=== PATIENT | female | born 1965 | race Caucasian/White ===

== ENCOUNTER 2018-07-02 09:03 | Emergency (ER) | payer BC ==
[~2018-07-02] VITALS: Ht 165.1 cm; Wt 90.7 kg
--- OUTSIDE RECORDS SUMMARY | 2018-07-02 09:05 | XMS REPORT | Clinical Summary ---
Author Author [facility] [employer] [facility] [employer] Address Unknown Phone Unavailable Care Team Providers Care Digital Solution Architect Name Role Phone Laurie Cortes MD PCP Allergies No Known Allergies Medications End Date Status Medication Sig Dispensed Refills Start Date Active propranolol (INDERAL) 40 TK 1 T PO BID 1 MG tablet 7 Active levothyroxine (SYNTHROID, TK 1 T PO D 0 LEVOXYL) 150 mcg tablet 7 Active butalbital-acetaminophen- TK 1 T PO Q 8 0 caff (FIORICET, ESGIC) H PRN 7 50-325-40 mg per tablet Active ondansetron (ZOFRAN) 4 MG Take 4 mg by 0 tablet mouth every 8 (eight) hours as needed for nausea or vomiting. Active promethazine (PHENERGAN) Take 25 mg by 0 25 MG tablet mouth every 6 (six) hours as needed for nausea or vomiting. Active cyanocobalamin 1,000 Inject 1,000 0 mcg/mL injection mcg into the shoulder, thigh, or buttocks once. Active tiZANidine (ZANAFLEX) 2 Take 2 mg by 0 MG tablet mouth every 8 (eight) hours as needed for muscle spasms. Active venlafaxine XR TK 1 C PO D 90 capsule 1 (EFFEXOR-XR) 150 MG 24 hr 7 capsule Active lisinopril TAKE 1 30 tablet 0 (PRINIVIL,ZESTRIL) 10 mg TABLET(10 MG) 8 tabletIndications: BY MOUTH Essential hypertension DAILY 08/07/2017 venlafaxine XR (EFFEXOR Take 1 90 capsule 1 XR) 75 MG 24 hr capsule (75 7 capsuleIndications: mg total) by Dysthymia mouth daily. 08/08/2017 Discontinued lisinopril TAKE 1 90 tablet 0 (PRINIVIL,ZESTRIL) 10 mg TABLET(10 MG) 8 tabletIndications: BY MOUTH Essential hypertension DAILY 11/04/2017 Discontinued lisinopril TAKE 1 90 tablet 0 (PRINIVIL,ZESTRIL) 10 mg TABLET(10 MG) 8 tabletIndications: BY MOUTH Essential hypertension DAILY Active Problems Problem Noted Date Acquired hypothyroidism 08/07/2016 Essential hypertension 08/07/2016 Vitamin D deficiency 08/07/2016 Arthritis 08/07/2016 Migraine Hypothyroid Hypertension Depression Allergic rhinitis Encounters Care Team Description Date Type Specialty Laurie Cortes MD Essential hypertension 12/10/2017 Refill Internal Medicine Laurie Cortes MD Essential hypertension 11/04/2017 Refill Internal Medicine Laurie Cortes MD Essential hypertension 08/08/2017 Refill Internal Medicine after 07/01/2017 Family History Medical History Relation Name Comments Heart disease Father Hyperlipidemia Father Atrial fibrillation Mother Relation Name Status Comments Father Mother Social History Date Tobacco Use Types Packs/Day Years Used Never Smoker Smokeless Tobacco: Never Used Alcohol Use Drinks/Week oz/Week Comments No Sex Assigned at Date Recorded Not on file Industry Job Start Date Occupation Not on file Not on file Not on file Travel End Travel History Travel Start No recent travel history available. Last Filed Vital Signs Not on file Plan of Treatment Health Maintenance Due Date Last Done Comments CERVICAL CANCER SCREENING 07/12/1987 BREAST CANCER SCREENING 2016 COLON CANCER SCREENING 2016 SHINGLES VACCINES (#1) 2016 INFLUENZA VACCINE 11/03/2017 Results Not on fileafter 07/01/2017 Insurance Payer Benefit Subscriber ID Type Phone Address Plan / Group BCBS BCBS xxxxxxxxxxxx PPO CHOICE PPO/FEDSAGRARIO L EMPL PPO Advance Directives Patient has advance care planning documents on file. For more information, teodoro sanford contact: [facility] [address] [place] [phone]
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
[2018-07-02] MEDS ORDERED: SODIUM CHLORIDE 0.9% 1000ML 1,000 ML IV STA (09:37)
[2018-07-02] MEDS ORDERED: KETOROLAC TROMETHAMINE 30 MG/ML VIAL ONE (09:55)
[2018-07-02] MEDS ORDERED: METOCLOPRAMIDE HCL 10 MG/2ML VIAL IV ONE (10:30)
[2018-07-02] MEDS ORDERED: DIPHENHYDRAMINE HCL INJ 50 MG/ML VIAL IV ONE (10:30)
[2018-07-02] MEDS ORDERED: KETOROLAC TROMETHAMINE 30 MG/ML VIAL IV ONE (10:30)
[2018-07-02] MEDS ORDERED: DIAZEPAM 5 MG TAB PO ONE (10:30)
[2018-07-02 11:01] VITALS: BP 120/73
== END 2018-07-02 11:11 | disposition home or self-care (01) ==
LOC: ER 09:03
DX: G43.011 Migraine without aura, intractable, with status migrainosus (principal); G44.219 Episodic tension-type headache, not intractable
CPT/HCPCS: 99283; J1200; J1885; J2765; J7030

== ENCOUNTER → 2018-11-08 | Outpatient (CLI) | payer BC ==
[~2018-11-08] MED LIST: BUTALBIT-ACETA1 EACH PO; LEVOTHYROXINE112 MCG PO; LISINOPRIL10 MG PO; NORCO 7.5-3251 EACH PO; PROPRANOLOL HCL40 MG PO; SUMATRIPTAN SQ; TIZANIDINE HCL4 MG PO; VENLAFAXINE HC150 M1 PO; VITAMIN B-121000 MC2 IM; VITAMIN D10000 UNIT PO
--- NOTE | 2018-11-08 14:30 | Diagnostic Imaging Report ---
EXAM: CT Chest WITHOUT intravenous contrast 11/08/2018 12:07 PM INDICATION: Abnormal chest radiograph, pulmonary nodule COMPARISON: Chest radiograph of 11/07/2018 TECHNIQUE: Chest was scanned utilizing a multidetector helical scanner from the lung apex through the level of the adrenal glands without administration of IV contrast. Coronal and sagittal reformations were obtained. Routine protocol was performed. IV CONTRAST: None RADIATION DOSE: Total DLP: 507.4 mGy*cm. Dose modulation, iterative reconstruction, and/or weight based adjustment of the mA/kV was utilized to reduce the radiation dose to as low as reasonably achievable. COMPLICATIONS: None FINDINGS: LINES/ TUBES: None. LUNGS AND AIRWAYS: The central airways are patent. No focal consolidation or pulmonary edema. The nodular opacities seen at the left lung apex on the prior radiograph of 11/07/2018 are not visualized on today's CT and likely represented overlying patient hair. No suspicious pulmonary nodules. PLEURA: No pleural effusion. No pneumothorax. HEART AND MEDIASTINUM: The right thyroid lobe is surgically absent. Left thyroid gland appears unremarkable. No supraclavicular, mediastinal, or hilar lymphadenopathy. The heart is not enlarged. No pericardial effusion. UPPER ABDOMEN: Limited noncontrast enhanced views of the upper abdomen demonstrate no focal abnormality in the partially visualized liver, spleen, pancreas, upper most kidneys, or right adrenal gland. 1.5 cm left adrenal gland myelolipoma. BONES: No acute osseous injury. No suspicious lytic or blastic lesions. SOFT TISSUES: Unremarkable. IMPRESSION: No suspicious lung nodules. The nodular opacity seen at the left lung apex on the prior radiograph likely represented overlying material external to the patient. Signed by: Karly Gibbs MD on 11/08/2018 2:26 PM
== END ==
LOC: CT 11:00
PROVIDERS: ATTEND Neurological Surgery
DX: Z03.89 Encounter for observation for other suspected diseases and conditions ruled out (principal); D17.79 Benign lipomatous neoplasm of other sites
CPT/HCPCS: 71250

== ENCOUNTER 2018-11-10 05:21 | Observation (INO) | payer BC ==
--- NOTE | 2018-11-07 16:36 | Diagnostic Imaging Report ---
EXAMINATION: CHEST 2 VIEWS INDICATION: Pre-operative COMPARISON: None FINDINGS: LINES/TUBES:None LUNGS:Lungs are well-inflated. No focal consolidation or pulmonary edema. Several nodular opacities at the left lung apex measure up to 10 mm. PLEURA:No pleural effusion or pneumothorax. MEDIASTINUM:The cardiomediastinal silhouette appears normal in size and shape. BONES/SOFT TISSUES:No acute osseous injury. ABDOMEN:No free air under the diaphragm. IMPRESSION: No focal pneumonia or pulmonary edema. Nodular opacities at the left lung apex measuring up to 10 mm likely represent pulmonary nodules. Recommend follow-up chest CT for further evaluation. Signed by: Karly Gibbs MD on 11/07/2018 4:33 PM
[2018-11-07 16:46] LABS: BASOPHILS # (AUTO) 0.1 (0.0-0.1); BASOPHILS % 0.7 % (0.0-1.0); EOSINOPHILS # (AUTO) 0.2 (0.0-0.4); EOSINOPHILS % 2.4 % (0.0-6.0); HEMATOCRIT 39.6 % (34.2-44.1); LYMPHOCYTES # (AUTO) 3.1 (1.0-3.2); LYMPHOCYTES % 36.3 % (18.0-39.1); MEAN CORPUSCULAR HEMOGLOBIN 29.1 pg (28-32); MEAN CORPUSCULAR HGB CONC 32.8 g/dL (31-35); MEAN CORPUSCULAR VOLUME 88.6 fL (81-99); MONOCYTES # (AUTO) 0.6 (0.2-0.8); MONOCYTES % 6.6 % (4.4-11.3); NEUTROPHILS # (AUTO) 4.6 (2.1-6.9); NEUTROPHILS % 53.8 % (38.7-80.0); PLATELET COUNT 314 x10e3/uL (140-360); RED BLOOD COUNT 4.47 x10e6/uL (3.6-5.1); RED CELL DISTRIBUTION WIDTH 12.7 % (11.7-14.4)
[2018-11-07 17:02] LABS: INR 0.84
[2018-11-07 17:03] LABS: PARTIAL THROMBOPLASTIN TIME 31.5 seconds (23.8-35.5)
[2018-11-07 17:09] LABS: ANION GAP 12.4 mmol/L (8-16); BLOOD UREA NITROGEN 10 mg/dL (7-26); BUN/CREATININE RATIO 12 (6-25); CALCIUM 9.5 mg/dL (8.4-10.2); CARBON DIOXIDE 24 mmol/L (22-29); CHLORIDE 107 mmol/L (98-107); CREATININE, SERUM 0.82 mg/dL (0.57-1.11); EST GLOMERULAR FILTRATION RATE > 60 ML/MIN (60-); GLUCOSE 80 mg/dL (74-118); POTASSIUM 4.4 mmol/L (3.5-5.1); SODIUM 139 mmol/L (136-145)
[~2018-11-10] VITALS: Ht 165.1 cm; Wt 90.3 kg
[~2018-11-10 05:21] MED LIST changes: -NORCO 7.5-3251 EACH PO
--- OUTSIDE RECORDS SUMMARY | 2018-11-10 05:35 | XMS REPORT | Clinical Summary ---
Author Author [employer] [facility] Address Unknown Phone Unavailable Care Team Providers Care Electrocardiograph Technician Name Role Phone Laurie Cortes MD PCP [...] MD Essential hypertension 12/10/2017 Refill Internal Medicine after 11/09/2017 Family History Medical History Relation Name Comments [...] Health Maintenance Due Date Last Done Comments BREAST CANCER SCREENING 2016 COLONOSCOPY SCREENING 2016 SHINGLES VACCINES (#1) 2016 INFLUENZA VACCINE 11/03/2018 Results Not on fileafter 11/09/2017 Insurance Type Payer Benefit Subscriber ID Effective Phone Address Plan / Dates Group PPO BCBS BCBS xxxxxxxxxxxx 2016-P CHOICE resent PPO/FRANCHESKA L EMPL PPO Advance Directives Patient has advance care planning documents on file. For more information, teodoro sanford contact: Leno Carias [address] [place] [address]
[2018-11-10] MEDS ORDERED: CEFAZOLIN SOD 1 GM/NS 50ML 50 ML IV ONE (06:17)
[2018-11-10] MEDS ORDERED: BUPIVACAINE 0.5%/EPI 30 ML SDV INJ ONE (07:00)
[2018-11-10] MEDS ORDERED: THROMBIN FOR SOLN 5,000 UNIT VIAL ONE (07:00)
[2018-11-10] MEDS ORDERED: BACITRACIN 50,000 UNIT VIAL ONE (07:00)
[2018-11-10] MEDS ORDERED: MORPHINE SULFATE INJ 4 MG/ML INJ 1ML ONE (09:03)
[2018-11-10] MEDS ORDERED: MAGNESIUM/ALUMINUM/SIMETHICONE 30 ML UDC PO PRN (09:15)
[2018-11-10] MEDS ORDERED: ACETAMINOPHEN 325 MG TAB PO PRN (09:15)
[2018-11-10] MEDS ORDERED: CEPACOL SORE THROAT LOZENGES PO PRN (09:15)
[2018-11-10] MEDS ORDERED: NON-FORMULARY MEDICATION (Cholecalciferol (Vitamin D3) (Vitamin D) 50,000 UNITS) PO SCH (09:15)
--- OUTSIDE RECORDS SUMMARY | 2018-11-10 09:22 | XMS REPORT | Clinical Summary ---
Author Author [facility] Organization [facility] Address Unknown Phone Unavailable Care Team Providers Care Clinical Editor Name Role Phone Laurie Cortes MD PCP [...] more information, teodoro sanford contact: Leno Carias [address] [place] [address]
[2018-11-10] MEDS ORDERED: KETOROLAC TROMETHAMINE 30 MG/ML VIAL ONE (09:31)
[2018-11-10 09:53] VITALS: BP 139/63
[2018-11-10 10:03] VITALS: BP 139/63
[2018-11-10] MEDS ORDERED: MORPHINE SULFATE INJ 10 MG/ML IM PRN (10:30)
--- NOTE | 2018-11-10 10:30 | NUR ---
Received patient from PACU, a/ox3, VSS and call light within reach, cervical collar in place, assisted to bed and pains well managed. Call light within reach and will monitor.
[2018-11-10] MEDS ORDERED: SUMATRIPTAN SUCCINATE 6 MG/0.5 ML VIAL SC PRN (10:45)
[2018-11-10] MEDS: LACTATED RINGER'S 1,000 ML IV SCH ×3 (10:56→22:26)
[2018-11-10] MEDS: CARISOPRODOL 350 MG TAB PO PRN ×2 (10:57→19:45)
--- NOTE | 2018-11-10 11:15 | NUR ---
Patient with c/o migraine headaches, medicated with Fiorecet and Soma, will monitor.
[2018-11-10] MEDS ORDERED: DESFLURANE 240 ML BTL INH ONE (11:17)
[2018-11-10] MEDS ORDERED: ROCURONIUM BROMIDE 10 MG/ML 5ML VIAL ONE (11:17)
[2018-11-10] MEDS ORDERED: DEXAMETHASONE SOD PHOS INJ 4 MG/ML VIAL ONE (11:17)
[2018-11-10] MEDS ORDERED: DIPHENHYDRAMINE HCL INJ 50 MG/ML VIAL ONE (11:17)
[2018-11-10] MEDS ORDERED: ACETAMINOPHEN 1000 MG/100 ML IV ONE (11:17)
[2018-11-10] MEDS ORDERED: ONDANSETRON HCL INJ 2MG/ML 2ML 2 MG/ML VIAL ONE (11:17)
[2018-11-10] MEDS ORDERED: GLYCOPYRROLATE INJ 1MG/ 5 ML SYR ONE (11:17)
[2018-11-10] MEDS ORDERED: NEOSTIGMINE 5 MG/5ML SYR ONE (11:17)
[2018-11-10] MEDS ORDERED: PROPOFOL IV EMULSION 10 MG/ML 20 ML VIAL ONE (11:17)
[2018-11-10] MEDS ORDERED: LIDOCAINE HCL 2% LOCAL INJ 5 ML SDV VIAL INJ ONE (11:17)
[2018-11-10] MEDS: ACETAMIN/BUTALBITAL/CAFFEINE TAB PO PRN ×2 (11:36→19:45)
[2018-11-10] MEDS: HYDROMORPHONE 2MG/ML 2 MG/ML ML IV PRN ×3 (11:53→21:29)
[2018-11-10] MEDS: PROMETHAZINE HCL (IM) 25 MG/ML VIAL IM PRN (11:53)
--- NOTE | 2018-11-10 11:56 | NUR ---
Patient with nausea and an episode of vomiting, medicated with Phernegen IM, Dilaudid for pain and will monitor.
[2018-11-10 12:05] VITALS: BP 113/69
--- NOTE | 2018-11-10 12:25 | Operative Report ---
DATE OF PROCEDURE: 11/10/2018 SURGEON: Kain Boo MD PREOPERATIVE DIAGNOSIS: C5-6 disk herniation with radiculopathy, M50.122. POSTOPERATIVE DIAGNOSIS: C5-6 disk herniation with radiculopathy, M50.122. PROCEDURES: 1. C5-6 anterior cervical diskectomy and microsurgical osteophyte resection and allograft fusion, 61864. 2. Preparation of MTF corticocancellous allograft, 78121. 3. C5-6 anterior cervical plating with Synthes DPM plate, 16061. ANESTHESIA: General. INDICATIONS: The patient is a woman, who presents with C5-6 disk herniation and spondylosis with intractable cervical radiculopathy and neck pain and headaches and was taken to the operating room for C5-6 anterior cervical decompression and fusion. PROCEDURE IN DETAIL: After induction of general anesthesia, the patient was placed on the operating table in supine position. The right side of the neck was prepped and draped in sterile fashion. The fluoroscopic C-arm was positioned in cross-table lateral orientation. A small transverse incision was created on the right side of neck, superimposed on the C5-6 disk space as determined by fluoroscopy. The platysma was divided in line with the incision. A subplatysmal dissection was carried out and avascular plane of dissection was developed medially in sternocleidomastoid muscles and was followed medial to the carotid sheath to the anterior border of cervical spine. The deep cervical fascia was opened. The esophagus was retracted to the left. The attachments of longus colli muscles to the anterolateral aspects of vertebral bodies of C5 and C6 were divided. The anterior longitudinal ligament was resected. [place]ner posts were inserted into C5 and C6 and the [place]ner distractor was used to distract the disk space. The anterior annulus of the disk was incised with a #11 blade. The contents of the C5-6 disk were thoroughly evacuated with angled curettes and pituitary rongeurs. The posterior osteophytes were drilled with a 2 mm cutting bur until they were completely removed. The posterior annulus of the disk, herniated disk material, and the posterior ventral ligament were resected layer by layer until the dura was fully exposed and decompressed. The medial aspects of the uncinate processes were resected bilaterally to further expose any compressed origins of the corresponding nerve roots. After satisfactory decompression had been achieved, the endplates were prepared for fusion. The disk space was sized and found to be 8 mm in height. A piece of MTF corticocancellous allograft measuring 8 mm in thickness was selected and prepared in saline and loaded onto a Synthes ZPN plate. The construct was then inserted into the C5-6 disk space under distraction and fluoroscopic guidance. The distraction was released and distraction posts were removed. The plate was then screwed to the endplates of C5 and C6 with two pairs of 14 mm screws. All screw holes were drilled on the lateral fluoroscopic guidance. All screws were locked. An excellent construct was obtained. The wound was copiously irrigated with bacitracin solution. Meticulous hemostasis was secured. The retractor was removed. The platysma was closed with 3-0 Vicryl sutures. The skin was closed with 4-0 Monocryl sutures in subcuticular fashion. Steri-Strips and dressing were applied. The patient was awakened, extubated and taken to the postanesthesia care unit in stable condition. No intraoperative complications were encountered. ESTIMATED BLOOD LOSS: 10 mL. Kain Boo MD PP/TIM /[id number]
[2018-11-10] MEDS: CEFAZOLIN SOD 1 GM/NS 50ML 50 ML IV SCH ×2 (14:01→21:29)
[2018-11-10] MEDS: OXYCODONE/ACETAMINOPHEN 5-325 1 EACH TABLET PO PRN ×2 (14:08→19:45)
[2018-11-10 16:07] VITALS: BP 92/56
[2018-11-10] MEDS: PROPRANOLOL HCL 40 MG TAB PO SCH (16:24)
[2018-11-10] MEDS: ONDANSETRON HCL INJ 2MG/ML 2ML 2 MG/ML VIAL IV PRN ×2 (16:53→21:29)
--- NOTE | 2018-11-10 18:28 | NUR ---
Patient remains alert and responsive, cervical collar in place and patient instructed to keep it on at all times. IV fluids running as ordered, medicated for pain, no distress at this time, will monitor.
--- NOTE | 2018-11-10 19:12 | NUR ---
BEDSIDE SHIFT REPORT PERFORMED, RECEIVED PT LAYING SEMI FOWLERS IN BED, AAOX3, RR EVEN AND NON-LABORED, ON ROOM AIR. SOFT NECK BRACE IN PLACE. DRESSING TO ANTERIOR NECK NOTED TO BE CDI. PT REPORTS PAIN TO BILATERAL SHOULDERS, ANTERIOR NECK AND HEADACHE.
[2018-11-10 20:00] VITALS: BP 103/58
[2018-11-10] MEDS ORDERED: TIZANIDINE HCL 4 MG TAB PO SCH (21:00)
[2018-11-10] MEDS ORDERED: ZOLPIDEM TARTRATE 5 MG TAB PO PRN (21:00)
[2018-11-10 21:29] VITALS: BP 103/58
--- NOTE | 2018-11-10 21:30 | NUR ---
APPLIED ICE PACK TO POSTERIOR NECK. PT REPORTS SOMETIMES AT HOME ICE PACKS WILL HELP HER HEADACHE.
[2018-11-10] MEDS ORDERED: DIPHENHYDRAMINE HCL 25 MG CAP PO PRN (21:45)
--- NOTE | 2018-11-10 22:00 | NUR ---
PT REPORTS HEADACHE IS DECREASING.
[2018-11-11] VITALS: BP 103/64
[2018-11-11] MEDS: PROMETHAZINE HCL (IM) 25 MG/ML VIAL IM PRN (00:15)
[2018-11-11] MEDS: ONDANSETRON HCL INJ 2MG/ML 2ML 2 MG/ML VIAL IV PRN (03:08)
[2018-11-11] MEDS: HYDROMORPHONE 2MG/ML 2 MG/ML ML IV PRN (03:08)
[2018-11-11 04:00] VITALS: BP 98/58
[2018-11-11] MEDS ORDERED: LEVOTHYROXINE SODIUM 112 MCG TAB PO SCH (06:00)
[2018-11-11] MEDS: ACETAMIN/BUTALBITAL/CAFFEINE TAB PO PRN (06:01)
[2018-11-11] MEDS: CEFAZOLIN SOD 1 GM/NS 50ML 50 ML IV SCH (06:12)
--- NOTE | 2018-11-11 07:19 | NUR ---
Rcvd patient in report this am. Patient is asleep in bed at this time. No s/s of distress noted
[2018-11-11] MEDS ORDERED: NORCO 7.5-3251 EACH PO (07:23)
[2018-11-11] MEDS: PROPRANOLOL HCL 40 MG TAB PO SCH (08:00)
--- NOTE | 2018-11-11 08:00 | NUR ---
Patient is AAOx3. patient is post op cervical fusion. Soft collar in place. Dressing to right side of neck clean and dry. Patient preferred to keep dressing in place. Lung calixto clear to auscultation. Bowel sounds present x4. No edema noted. PRN pain meds given for 7/10 pain.
--- NOTE | 2018-11-11 08:00 | NUR ---
IV removed. Pressure dressing applied. Catheter tip intact.
[2018-11-11 08:05] VITALS: BP 108/55
[2018-11-11] MEDS: CARISOPRODOL 350 MG TAB PO PRN (08:37)
[2018-11-11] MEDS: OXYCODONE/ACETAMINOPHEN 5-325 1 EACH TABLET PO PRN (08:37)
--- NOTE | 2018-11-11 08:45 | NUR ---
Patient discharged from facility to home. Patient assisted out via staff in wheelchair. Reviewed all discharge paperwork, follow up appts and RX's given.
[2018-11-11 08:55] VITALS: BP 108/55
[2018-11-11] MEDS ORDERED: LISINOPRIL 10 MG TAB PO SCH (09:00)
[2018-11-11] MEDS ORDERED: ERGOCALCIFEROL 50,000 UNIT CAP PO SCH (09:00)
[2018-11-11] MEDS ORDERED: VENLAFAXINE HCL 75 MG CAPCR PO SCH (09:00)
== END 2018-11-11 08:48 | disposition home or self-care (01) ==
LOC: OR 05:21 → PACU V 09:07 → MED/SURG 09:56
PROVIDERS: ADMIT Neurological Surgery; ATTEND Neurological Surgery
DX: M50.122 Cervical disc disorder at C5-C6 level with radiculopathy (principal); Q28.3 Other malformations of cerebral vessels; Z91.018 Allergy to other foods; I10 Essential (primary) hypertension; E78.5 Hyperlipidemia, unspecified; E03.9 Hypothyroidism, unspecified; F41.9 Anxiety disorder, unspecified
CPT/HCPCS: 20931; 22551; 22845; 36415; 71046; 77003; 80048; 85025; 85610; 85730; 86850; 86900; 88304; 93005; G0378 ×2; J0131; J0690 ×2; J1100; J1170 ×2; J1200; J1885; J2001; J2270; J2405 ×2; J2550 ×2; J2704; J3490; J7121; C1713; C9359

== ENCOUNTER 2020-02-11 11:57 | Emergency (ER) | payer BC ==
[~2020-02-11] VITALS: Ht 165.1 cm; Wt 90.3 kg
[~2020-02-11 11:57] MED LIST changes: +NORCO 7.5-3251 EACH PO
--- NOTE | 2020-02-11 12:10 | NUR ---
XRAY IN ROOM.
[2020-02-11] MEDS ORDERED: HYDROCODONE/APAP 5MG-325MG TAB PO ONE (12:15)
[2020-02-11] MEDS ORDERED: IBUPROFEN 400 MG TAB PO ONE (12:15)
[2020-02-11] MEDS ORDERED: IBUPROFEN 600 MG TAB ONE (12:17)
--- OUTSIDE RECORDS SUMMARY | 2020-02-11 12:33 | XMS REPORT | Continuity of Care Document ---
Author Author [facility] t Organization [facility] Address [address] [place] [address] Phone Unavailable Care Team Providers Care Access Spec Name Role Phone NIKITA Sanches EMIYL PCP Bridgette Pack DO Attphys MARIELA STALLWORTH Attphys Unavailable Emily KELLY Attphys Unavailable Payers Payer Name Policy Type Policy Number Effective Date Expiration Date S [facility] [employer] [place] [id number] 2015 00:00:00 [facility] Problems Condition Name Condition Details Condition Category Status Onset Date Resolution Date Last Treatment Date Treating Clinician Comments Source Acquired hypothyroidism Acquired hypothyroidism Disease Active 2016-08-07 00:00:[address] Essential hypertension Essential hypertension Disease Active 2016-08-07 00:00:[address] Vitamin D deficiency Vitamin D deficiency Disease Active 00:00:00 [place] [facility] Arthritis Arthritis Disease Active 2016-08-07 00:00:00 [place] [facility] Migraine Migraine Disease Active Jessica potts [facility] Hypothyroid Hypothyroid Disease Active [place] [facility] Hypertension Hypertension Disease Active [place] [employer] Depression Depression Disease Active anant Carias Allergic rhinitis Allergic rhinitis Disease Active [place] [facility] Allergies, Adverse Reactions, Alerts Allergy Name Allergy Type Status Severity Reaction(s) Onset Date Inacti ve Date Treating Clinician Comments Source Iodinated Contrast- Oral and IV Dye DA Active 2018-12-04 3 00:00:00 [facility] [place] FA Active 2018-12-16 00:00:00 [facility] lemon FA Active 2018-12-16 00:00:00 [facility] [place] Allergy to Substance Active Severe HIVES, THROAT C LOSURE 2018-11-07 00:00:00 [facility] lemon Allergy to Substance Active Severe HIVES, THROAT C LOSURE 2018-11-07 00:00:00 [facility] Iodinated Contrast- Oral and IV Dye DA Active 2016-01-04 3 00:00:00 [facility] [place] FA Active 2016-01-16 00:00:00 [facility] lemon FA Active 2016-01-16 00:00:00 [facility] Family History Family Member Diagnosis Comments Start Date Stop Date Source Natural father Heart disease Leno Carias Natural father Hyperlipidemia [place] [employer] Natural mother Atrial fibrillation H ougauri Carias Social History Social Habit Start Date Stop Date Quantity Comments Source Sex Assigned At [place] ro[place]alis Carias Tobacco use and exposure 2016-08-07 00:00:00 2016-08-07 00:00:00 Edith r used Leno Carias Alcohol intake 2016-08-07 00:00:00 2016-08-07 00:00:00 Current non-drinker of alcohol (finding) Leno Carias Smoking Status Start Date Stop Date Source Never smoker Leno middleton Medications Ordered Medication Name Filled Medication Name Start Date Stop Da te Current Medication? Ordering Clinician Indication Dosage Frequency Signature (SIG) Comments Components Source lisinopril (PRINIVIL,ZESTRIL) 10 mg tablet 2017-11-04 00:00: 00 Yes Essential hypertension TAKE 1 TABLET(10 MG) BY MOUTH DAILY Leno Carias venlafaxine XR (EFFEXOR-XR) 150 MG 24 hr capsule 2016-10-07 00:00:00 Yes TK 1 C PO D Leno bailey ondansetron (ZOFRAN) 4 MG tablet 2016-08-07 10:17:14 Yes 4mg Q8H Take 4 mg by mouth every 8 (eight) hours as needed for nausea or vomiting. Leno Carias promethazine (PHENERGAN) 25 MG tablet 2016-08-07 10:17:14 Y es 25mg Q6H Take 25 mg by mouth every 6 (six) hours as needed for nausea or vomiting. Leno Carias cyanocobalamin 1,000 mcg/mL injection 2016-08-07 10:17:14 Y es 1000ug Inject 1,000 mcg into the shoulder, thigh, or buttocks once. Leno Carias tiZANidine (ZANAFLEX) 2 MG tablet 2016-08-07 10:17:14 Yes 2mg Q8H Take 2 mg by mouth every 8 (eight) hours as needed for muscle spasms. Leno Carias propranolol (INDERAL) 40 MG tablet 2016 00:00:00 Yes TK 1 T PO BID Leno Carias levothyroxine (SYNTHROID, LEVOXYL) 150 mcg tablet 2016-06-04 00:00:00 Yes TK 1 T PO D Leno Methjudd bailey esslzqlpnn-oerejyginldam-eyyq (FIORICET, ESGIC) 50-325-40 mg per tablet 2016-06-01 00:00:00 Yes TK 1 T PO Q 8 H MO N Leno Carias Butalb/Acetaminophen/Caffeine (Butalbit-Acetaminophen- Caff Cp) 1 Each Capsule Butalb/Acetaminophen/Caffeine (Ifxoxnfa-Oktiiimxrwgou-Wmfv Cp) 1 Each Capsule Yes 1 Every 8 Hours as needed for Migr kathe [facility] Cholecalciferol (Vitamin D3) (Vitamin D) 10,000 Unit C apsule Cholecalciferol (Vitamin D3) (Vitamin D) 10,000 Unit Capsule Yes 40995 Weekly [facility] Cyanocobalamin (Vitamin B-12) (Vitamin B-12) 1,000 Mcg Tab.subl Cyanocobalamin (Vitamin B-12) (Vitamin B-12) 1,000 Mcg Tab.subl Yes 1 000 Qweekly [facility] Hydrocodone Bit/Acetaminophen (Dunlap 7.5-325 Tablet) 1 Each Tablet Hydrocodone Bit/Acetaminophen (Dunlap 7.5-325 Tablet) 1 Each Tablet Yes 1 Every 4 Hours as needed for Mild Pain (1-3) Or Fever>100.8 [facility] Levothyroxine Sodium 112 Mcg Tablet Levothyroxine Sodium 112 Mcg Tabl et Yes 112 Daily [facility] Lisinopril 10 Mg Tablet Lisinopril 10 Mg Tablet Yes 10 Daily [facility] Propranolol Hcl 40 Mg Tablet Propranolol Hcl 40 Mg Tablet Y es 40 Twice A Day [facility] Sumatriptin Sumatriptin Yes 6 As Needed as nee ded for Migraine [facility] Tizanidine Hcl 4 Mg Tablet Tizanidine Hcl 4 Mg Tablet Yes 4 Bedtime [facility] Venlafaxine Hcl (Venlafaxine Hcl Er) 150 Mg Tab.er.24 Venlafaxine Hcl (Venlafaxine Hcl Er) 150 Mg Tab.er.24 Yes 150 Daily [facility] Procedures Procedure Date / Time Performed Performing Clinician [facility] e Anterior cervical discectomy 2018-11-10 00:00:00 [place] STALLWROTH [facility] Computed tomography of chest without contrast 2018-11-08 00: 00:00 MARIELA STALLWORTH [facility] X-ray of chest, two views 2018-11-07 00:00:00 MARIELA STALLWORTH [facility] Plan of Care Planned Activity Planned Date Details Comments Source Future Scheduled Test 2019-11-04 00:00:00 INFLUENZA VACCINE [code = INFLUENZA VACCINE] [facility] Scheduled Test 2016 00:00:00 BREAST CANCER SCRE ENING [code = BREAST CANCER SCREENING] [facility] Scheduled Test 2016 00:00:00 COLONOSCOPY SCREEN ING [code = COLONOSCOPY SCREENING] [facility] Scheduled Test 2016 00:00:00 SHINGLES VACCINES (#1) [code = SHINGLES VACCINES (#1)] [facility] Scheduled Test 1987-07-12 00:00:00 Screening for chris gnant neoplasm of cervix (procedure) [code = 664970984] [facility] Encounters Start Date/Time End Date/Time Encounter Type Admission Type [facility] Care Department Encounter ID Source 2019-08-02 20:29:32 2019-08-02 23:05:00 Emergency Artur Pack [facility] ([facility]) [id number] 2018-11-10 09:07:00 2018-11-11 08:48:00 Discharged Inpatient (obs) 3 CELIA STALLWORTHYMAN [facility] [id number] [facility] 2018-11-08 11:00:00 2018-11-08 11:00:00 [facility] [id number] [facility] 2018-07-02 09:03:00 2018-07-02 11:11:00 Departed Emergency Room [facility] [id number] [facility] Results Test Description Test Time Test Comments Results Result Comments Source FECES OVA PARASITES 2018-12-23 08:10:00 Test Item CONCENTRATE RESULT (test code = CONC) Final report () These results were obtained using wet preparation(s) andtrichrome stained smear. This test does not include testingfor Cryptosporidium parvum, Cyclospora, or Microsporidia. TRICHROME RESULT (test code = TRIC) SOURCE: STOOLSPECIMEN DESCRIPTION: RANDOMFECES OVA [id number] 08:10:00* Test Item Value Reference Range Interpretation Comments CONCENTRATE RESULT (test code = CONC) Final report () These results were obtained using wet preparation(s) andtrichrome stained smear. This test does not include testingfor Cryptosporidium parvum, Cyclospora, or Microsporidia. TRICHROME RESULT (test code = TRIC) () No ova, cysts, or parasites seen.One negative specimen does not rule out the possibility ofa parasitic infection.Performed At: [address] [id number] Brad Abbott MD Ph:[phone] SOURCE: STOOLSPECIMEN DESCRIPTION: RANDOMCOLON [id number] 12:40:00 RUN DATE: 12/21/18 [facility] PAGE 1 RUN TIME: 1240 Specimen Inqui ry RUN USER: INTERFACE PATIENT: MANDIE JANG ACCT #: [id number] LOC: SPENCER #: [id number] AGE/SX: 53/F ROOM: 2041 RE12/16/18[facility] DR: Alejandro Crespo MD : 67 BED: A DIS: 12/19/18 STATUS: DIS Mary Ann TLOC: SPEC #: [id number] RECD: 12/20/18 STATUS: KVNG RECarolina #: [id number] ALIZA: 12/19/[address] [facility] [address]: Venancio Felder MD ENTERED: 12/20/18 SP TYPE: COLONBX OTHR DR: Eliane Flaherty MD, Niraj MDORDERED: GROSS COPIES TO: Luis Alberto Flaherty MD [address] [place] [address] Emily Nesbitt MD [address] [place] [address] Venancio Felder MD [address] [place] [address] PROCEDURES: GROSS (12/21/18-1148) TISSUES: COLON, NOS - RANDOM COLD BX CLINICAL HISTORY COLLECTION DATE: 12/19/18 DIARRHEA, RECTAL BLEED FINAL DIAGNOSIS Colon, random biopsy: UNREMARKABLE COLON IC MUCOSA WITH NO SIGNIFICANT INFLAMMATION, HISTOLOGIC FEATURES OF MICROS COPIC COLITIS, DYSPLASIA OR MALIGNANCY FA/abbie Rivers [address] CONTINUED ON NEXT PAGE RUN DATE: 12/21/18 [facility] PAGE 2 RUN TIME: 1240 Specimen Inquiry RUN USER: INTERFACE -- SPEC #: [id number] PATIENT: MANDIE JANG #[id number] (Continued) MACROSCOPIC The specimen is rec eived in formalin, labeled with the patient's name, identified as "random colo n bx", and consists of multiple muller biopsy tissue measuring 0.8 x 0.7 x 0.1 cm , submitted in a single cassette. GROSS PERFORMED AT [facility] [address] [place] [address] [place] [address] (p)[phone] MICROSCOPIC All of the stains, inclu ding any controls performed, stain appropriately. MICROSCOPIC PERFORMED AT [facility] [address] [place] [address] [phone] PERFORMING SITE Diagnosis perf ormed at: [facility] GINA vincent [address] [facility], [place] [id number] [phone] Signed SIGNATURE ON FILE Sia Bernal MD 12/21/18 1240 END OF REPORT BASIC METABOLIC [id number] 04:27:00* Test Item Value Reference Range Interpretation Comments SODIUM (test code = NA) 142 mmol/L 136-145 N POTASSIUM (test code = K) 4.0 mmol/L 3.5-5.1 N CHLORIDE (test code = CL) 107.0 mmol/L 98-107 N CARBON DIOXIDE (test code = CO2) 30.0 mmol/L 21-32 N ANION GAP (test code = GAP) 9.0 10-20 L GLUCOSE (test code = GLU) 88 mg/dL 74-106 N BLOOD UREA NITROGEN (test code = BUN) 6 mg/dL 7-18 L GLOMERULAR FILTRATION RATE (test code = GFR) > 60 mL/min >=60 Estimated GFR by using Modified MDRD formula.Chronic kidney disease is defined as either kidney damageor GFR <60 mL/min/1.73 m2 for >3 months. CREATININE (test code = CREAT) 0.80 mg/dL 0.55-1.02 N Note change in reference range due to change in reagent. BUN/CREATININE RATIO (test code = BUN/CREA) 7.3 10-20 L CALCIUM (test code = CA) 8.2 mg/dL 8.5-10.1 L BASIC METABOLIC [id number] 04:19:00* Test Item Value Reference Range Interpretation Comments SODIUM (test code = NA) 142 mmol/L 136-145 N POTASSIUM (test code = K) 4.0 mmol/L 3.5-5.1 N CHLORIDE (test code = CL) 107.0 mmol/L 98-107 N CARBON DIOXIDE (test code = CO2) mmol/L 21-32 ANION GAP (test code = GAP) 10-20 GLUCOSE (test code = GLU) mg/dL 74-106 BLOOD UREA NITROGEN (test code = BUN) mg/dL 7-18 GLOMERULAR FILTRATION RATE (test code = GFR) mL/min >=60 CREATININE (test code = CREAT) mg/dL 0.55-1.02 BUN/CREATININE RATIO (test code = BUN/CREA) 10-20 CALCIUM (test code = CA) mg/dL 8.5-10.1 CBC W/AUTO [id number] 04:08:00* Test Item Value Reference Range Interpretation Comments WHITE BLOOD CELL (test code = WBC) 8.3 K/mm3 4.5-12.5 N RED BLOOD CELL (test code = RBC) 4.10 mill/mm3 3.7-5.2 N HEMOGLOBIN (test code = HGB) 11.9 gram/dL 11.5-15.5 N HEMATOCRIT (test code = HCT) 37.0 % 36.0-46.0 N MEAN CELL VOLUME (test code = MCV) 90.2 fL 80-98 N MEAN CELL HGB (test code = MCH) 29.0 picogram 27.0-33.0 N MEAN CELL HGB CONCETRATION (test code = MCHC) 32.2 gram/dL 33.0-36. 0 L RED CELL DISTRIBUTION WIDTH (test code = RDW) 12.4 % 11.6-16. 2 N RED CELL DISTRIBUTION WIDTH SD (test code = RDW-SD) 41.0 fL 37 .0-51.0 N PLATELET COUNT (test code = PLT) 232 K/mm3 150-450 N MEAN PLATELET VOLUME (test code = MPV) 10.8 fL 6.7-11.0 N NEUTROPHIL % (test code = NT%) 56.9 % 39.0-69.0 N IMMATURE GRANULOCYTE % (test code = IG%) 0.5 % 0.0-5.0 N LYMPHOCYTE % (test code = LY%) 32.8 % 25.0-55.0 N MONOCYTE % (test code = MO%) 6.5 % 0.0-10.0 N EOSINOPHIL % (test code = EO%) 2.7 % 0.0-5.0 N BASOPHIL % (test code = BA%) 0.6 % 0.0-1.0 N NUCLEATED RBC % (test code = NRBC%) 0.0 % 0-0 N NEUTROPHIL # (test code = NT#) 4.71 K/mm3 1.8-7.7 N IMMATURE GRANULOCYTE # (test code = IG#) 0.04 x10 3/uL 0-0.03 H LYMPHOCYTE # (test code = LY#) 2.71 K/mm3 1.0-5.0 N MONOCYTE # (test code = MO#) 0.54 K/mm3 0-0.8 N EOSINOPHIL # (test code = EO#) 0.22 K/mm3 0.0-0.5 N BASOPHIL # (test code = BA#) 0.05 K/mm3 0.0-0.2 N NUCLEATED RBC # (test code = NRBC#) 0.00 K/mm3 0.0-0.1 N MANUAL DIFF REQUIRED (test code = MDIFF) NO HGB [id number] 06:03:00* Test Item Value Reference Range Interpretation Comments HEMOGLOBIN (test code = HGB) 12.0 gram/dL 11.5-15.5 N HEMATOCRIT (test code = HCT) 36.6 % 36.0-46.0 N - CT ABD PELVIS [id number] 19:07:00 Name: MANDIE JANG [facility] : 1965 Age/S: 53 / F [address] Unit #: [id number] Loc: [place], [place] [address] Phys: Bola Rivas MD Acct: [id number] Dis Date: Status: REG ER PHONE #: [phone] Exam Date: 12/16/20181835 FAX #: [phone] Reason: lower abd pain and bright red blood per rectum EXAMS: CPT CODE: [id number] CT ABD PELVIS W/CONT 47782 REASON FOR EXAM: lower abd pain and bright red blood per rectum EXAM ORDER DATE: 12/16/2018 4:18 PM Ordering M.D.: Bola Rivas MD PROCEDURE: - CT ABD PELVIS W/CONT contrast-enhanced axial CT images were acquired through the abdomen/pelvis at 5 mm intervals. Sagittal and coronal reformatted images were generated. Automated exposure control was utilized for this reduction. Phases of contrast: venous and delayed COMPARISON: None FINDINGS: Visualized thorax: Normal Hepatobiliary system: Normal Pancreas: Normal Spleen: Normal Adrenal glands: Left adrenal lipoma measuring 1.8 cm. Right adrenal gland is within normal limits. Genitourinary system: 2.3 cm simple cyst in the midpole of the right kidn ey. Subcentimeter cortical cyst in the mid to inferior pole of the right k idney. Prior hysterectomy. Gastrointestinal tract and appendix: No rmal Abdominal vascular structures: Normal Peritoneu m and retroperitoneum: No free fluid or free air. No omental or mesenteri c masses. No abnormal lymph nodes. Musculoskeletal structures and abdominal wall: Normal IMPRESSION: No acute intra-abdom inal abnormalities. Specifically the gastrointestinal tract is within no rmal limits with no obvious masses or diverticular disease. PAGE 1 Signed Report (CONTINUED) Name: MANDIE JANG [facility] : 1965 Age/S: 53 / F [address] [facility] Unit #: [id number] c: [place] [address] Phys: Bola Rivas MD Acct: [id number] Dis Date: Status: REG ER PHONE #: [phone] Exam Date: 12/16/2018 183 FAX #: [phone] Reason: lower abd pain and bright red blood per rectum EXAMS: CPT CODE: [id number] CT ABD PELVIS W/CONT 52718 <Continued> at 1907 Reported and signed by: Steven Hess MD CC: Emily Nesbitt MD; Bola Rivas MD Technologist:Evelyne Khan RT(R); JOSE Myers CTDI: DLP: Trnscb Date/Time: 12/16/2018 (1906) [id number] Orig Print D/T: S: 12/16/2018 (1909) PAGE 2 Signed Report BASIC METABOLIC PANEL 2018-12-16 16:25:00* Test Item Value Reference Range Interpretation Comments SODIUM (test code = NA) 141 mmol/L 136-145 N POTASSIUM (test code = K) 4.0 mmol/L 3.5-5.1 N CHLORIDE (test code = CL) 110.0 mmol/L 98-107 H CARBON DIOXIDE (test code = CO2) 25.0 mmol/L 21-32 N ANION GAP (test code = GAP) 10.0 10-20 N GLUCOSE (test code = GLU) 107 mg/dL 74-106 H BLOOD UREA NITROGEN (test code = BUN) 9 mg/dL 7-18 N GLOMERULAR FILTRATION RATE (test code = GFR) > 60 mL/min >=60 Estimated GFR by using Modified MDRD formula.Chronic kidney disease is defined as either kidney damageor GFR <60 mL/min/1.73 m2 for >3 months. CREATININE (test code = CREAT) 0.80 mg/dL 0.55-1.02 N Note change in reference range due to change in reagent. BUN/CREATININE RATIO (test code = BUN/CREA) 11.3 10-20 N CALCIUM (test code = CA) 9.3 mg/dL 8.5-10.1 N HEPATIC FUNCTION [id number] 16:25:00* Test Item Value Reference Range Interpretation Comments TOTAL PROTEIN (test code = PROT) 6.8 gram/dL 6.4-8.2 N ALBUMIN (test code = ALB) 3.2 g/dL 3.4-5.0 L GLOBULIN (test code = GLOB) 3.6 gram/dL 2.7-4.2 N ALBUMIN/GLOBULIN RATIO (test code = A/G) 0.9 0.75-1.50 N BILIRUBIN TOTAL (test code = BILT) 0.30 mg/dL 0.0-1.0 N BILIRUBIN DIRECT (test code = BILD) 0.07 mg/dL 0.0-0.20 N SGOT/AST (test code = AST) 6 IUnit/L 15-37 L SGPT/ALT (test code = ALT) 15 IUnit/L 12-78 N ALKALINE PHOSPHATASE TOTAL (test code = ALKP) 82 IUnit/L 45-117 N Note change in reference range due to change in reagent. [id number] 16:25:00* Test Item Value Reference Range Interpretation Comments LIPASE (test code = LIP) 96 U/L 73.0-393.0 N HCG SERUM [id number] 16:25:00* Test Item Value Reference Range Interpretation Comments HCG SERUM QUAL (test code = HCGQL) NEGATIVE NEGATIVE This HCGQL test is NOT applicable for MALE patients.Check with nurse about probable order error.If Tumor Marker Test needed, nurse should order test "HCGTU"(Test #550.37563) BASIC METABOLIC [id number] 16:20:00* Test Item Value Reference Range Interpretation Comments SODIUM (test code = NA) 141 mmol/L 136-145 N POTASSIUM (test code = K) 4.0 mmol/L 3.5-5.1 N CHLORIDE (test code = CL) 110.0 mmol/L 98-107 H CARBON DIOXIDE (test code = CO2) mmol/L 21-32 ANION GAP (test code = GAP) 10-20 GLUCOSE (test code = GLU) mg/dL 74-106 BLOOD UREA NITROGEN (test code = BUN) mg/dL 7-18 GLOMERULAR FILTRATION RATE (test code = GFR) mL/min >=60 CREATININE (test code = CREAT) mg/dL 0.55-1.02 BUN/CREATININE RATIO (test code = BUN/CREA) 10-20 CALCIUM (test code = CA) mg/dL 8.5-10.1 HEPATIC FUNCTION [id number] 16:20:00* Test Item Value Reference Range Interpretation Comments TOTAL PROTEIN (test code = PROT) gram/dL 6.4-8.2 ALBUMIN (test code = ALB) g/dL 3.4-5.0 GLOBULIN (test code = GLOB) gram/dL 2.7-4.2 ALBUMIN/GLOBULIN RATIO (test code = A/G) 0.75-1.50 BILIRUBIN TOTAL (test code = BILT) mg/dL 0.0-1.0 BILIRUBIN DIRECT (test code = BILD) mg/dL 0.0-0.20 SGOT/AST (test code = AST) IUnit/L 15-37 SGPT/ALT (test code = ALT) IUnit/L 12-78 ALKALINE PHOSPHATASE TOTAL (test code = ALKP) IUnit/L 45-117 [id number] 16:20:00* Test Item Value Reference Range Interpretation Comments LIPASE (test code = LIP) U/L 73.0-393.0 HCG SERUM [id number] 16:20:00* Test Item Value Reference Range Interpretation Comments HCG SERUM QUAL (test code = HCGQL) NEGATIVE NEGATIVE This HCGQL test is NOT applicable for MALE patients.Check with nurse about probable order error.If Tumor Marker Test needed, nurse should order test "HCGTU"(Test #550.91998) BASIC METABOLIC [id number] 16:16:00* Test Item Value Reference Range Interpretation Comments SODIUM (test code = NA) 141 mmol/L 136-145 N POTASSIUM (test code = K) 4.0 mmol/L 3.5-5.1 N CHLORIDE (test code = CL) 110.0 mmol/L 98-107 H CARBON DIOXIDE (test code = CO2) mmol/L 21-32 ANION GAP (test code = GAP) 10-20 GLUCOSE (test code = GLU) mg/dL 74-106 BLOOD UREA NITROGEN (test code = BUN) mg/dL 7-18 GLOMERULAR FILTRATION RATE (test code = GFR) mL/min >=60 CREATININE (test code = CREAT) mg/dL 0.55-1.02 BUN/CREATININE RATIO (test code = BUN/CREA) 10-20 CALCIUM (test code = CA) mg/dL 8.5-10.1 HEPATIC FUNCTION [id number] 16:16:00* Test Item Value Reference Range Interpretation Comments TOTAL PROTEIN (test code = PROT) gram/dL 6.4-8.2 ALBUMIN (test code = ALB) g/dL 3.4-5.0 GLOBULIN (test code = GLOB) gram/dL 2.7-4.2 ALBUMIN/GLOBULIN RATIO (test code = A/G) 0.75-1.50 BILIRUBIN TOTAL (test code = BILT) mg/dL 0.0-1.0 BILIRUBIN DIRECT (test code = BILD) mg/dL 0.0-0.20 SGOT/AST (test code = AST) IUnit/L 15-37 SGPT/ALT (test code = ALT) IUnit/L 12-78 ALKALINE PHOSPHATASE TOTAL (test code = ALKP) IUnit/L 45-117 [id number] 16:16:00* Test Item Value Reference Range Interpretation Comments LIPASE (test code = LIP) U/L 73.0-393.0 HCG SERUM [id number] 16:16:00* Test Item Value Reference Range Interpretation Comments HCG SERUM QUAL (test code = HCGQL) NEGATIVE URINALYSIS [id number] 16:12:00* Test Item Value Reference Range Interpretation Comments UA COLOR (test code = COLU) Light-Yellow YELLOW UA APPEARANCE (test code = APPU) CLEAR CLEAR UA GLUCOSE DIPSTICK (test code = DGLUU) NEGATIVE mg/dL NEGATIVE UA BILIRUBIN DIPSTICK (test code = BILU) NEGATIVE mg/dL NEGATIVE UA KETONE DIPSTICK (test code = KETU) NEGATIVE mg/dL NEGATIVE UA SPECIFIC GRAVITY (test code = SGU) 1.018 1.001-1.035 UA BLOOD DIPSTICK (test code = MANJINDER) Negative mg/dL NEGATIVE UA PH DIPSTICK (test code = MARGARITA) 6.5 5.0-8.0 UA PROTEIN DIPSTICK (test code = PROU) NEGATIVE mg/dL NEGATIVE UA UROBILINIOGEN DIPSTICK (test code = URO) Normal mg/dL NEGATIVE UA NITRITE DIPSTICK (test code = NOAM) NEGATIVE NEGATIVE UA LEUKOCYTE ESTERASE W REFLEX (test code = LEUUR) NEGATIVE Marianela/uL NEGATIVE UA WBC (test code = WBCU) 0-5 per HPF 0-5 UA RBC (test code = RBCU) 0-2 #/HPF 0-5 UA EPITHELIAL CELLS (test code = EPIU) FEW per HPF FEW UA BACTERIA (test code = BACU) FEW #/HPF NONE A Urine Source? Clean CatchCBC W/O [id number] 16:10:00* Test Item Value Reference Range Interpretation Comments WHITE BLOOD CELL (test code = WBC) 7.4 K/mm3 4.5-12.5 N RED BLOOD CELL (test code = RBC) 4.32 mill/mm3 3.7-5.2 N HEMOGLOBIN (test code = HGB) 12.6 gram/dL 11.5-15.5 N HEMATOCRIT (test code = HCT) 37.9 % 36.0-46.0 N MEAN CELL VOLUME (test code = MCV) 87.7 fL 80-98 N MEAN CELL HGB (test code = MCH) 29.2 picogram 27.0-33.0 N MEAN CELL HGB CONCETRATION (test code = MCHC) 33.2 gram/dL 33.0-36. 0 N RED CELL DISTRIBUTION WIDTH (test code = RDW) 12.5 % 11.6-16. 2 N PLATELET COUNT (test code = PLT) 272 K/mm3 150-450 N MEAN PLATELET VOLUME (test code = MPV) 11.2 fL 6.7-11.0 H CBC W/O [id number] 16:09:00* Test Item Value Reference Range Interpretation Comments WHITE BLOOD CELL (test code = WBC) K/mm3 4.5-12.5 RED BLOOD CELL (test code = RBC) mill/mm3 3.7-5.2 HEMOGLOBIN (test code = HGB) 12.6 gram/dL 11.5-15.5 N HEMATOCRIT (test code = HCT) 37.9 % 36.0-46.0 N MEAN CELL VOLUME (test code = MCV) fL 80-98 MEAN CELL HGB (test code = MCH) picogram 27.0-33.0 MEAN CELL HGB CONCETRATION (test code = MCHC) gram/dL 33.0-36. 0 RED CELL DISTRIBUTION WIDTH (test code = RDW) % 11.6-16. 2 PLATELET COUNT (test code = PLT) K/mm3 150-450 MEAN PLATELET VOLUME (test code = MPV) fL 6.7-11.0 CT CHEST [id number] 13:41:00 [facility] [address] [address] Patient Name: MANDIE JANG MR #: [id number] : 1965 Age/Sex: 53/F Req #: [id number] Adm Physician: Ordered by: MARIELA STALLWORTH MD Report #: [id number] Location: CT Room/Bed: Procedure: [id number] CT /CT CHEST WO Exam Date: 11/08/18 Exam Time: 1218 REPORT STATUS: Signed EXAM: CT Chest WITHOUT intravenous contrast 11/08/2018 12:07 PM INDICATION: Abnormal chest r adiograph, pulmonary nodule COMPARISON: Chest radiograph of 11/07/2018 TECHNIQ UE: Chest was scanned utilizing a multidetector helical scanner from the lung apex through the level of the adrenal glands without administration of IV cont rast. Coronal and sagittal reformations were obtained. Routine protocol was performed. IV CONTRAST: None RADIATION DOSE: Total DLP: 507.4 mGy*cm. Dos e modulation, iterative reconstruction, and/or weight based adjustment of the mA/kV was utilized to reduce the radiation dose to as low as reasonably achiev able. COMPLICATIONS: None FINDINGS: LINES/ TUBES: None. LUNGS AND AIRWAYS: The central airways are patent. No focal consolidation or pulmon liya edema. The nodular opacities seen at the left lung apex on the prior radio graph of 11/07/2018 are not visualized on today's CT and likely represented over lying patient hair. No suspicious pulmonary nodules. PLEURA: No pleural eff usion. No pneumothorax. 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 Left thyroid gland appears unremarkable. No supraclavicular, mediastinal, or hilar lymphadenopathy. The heart is not enlarged. No pericardi al effusion. UPPER ABDOMEN: Limited noncontrast enhanced views of the upp er abdomen demonstrate no focal abnormality in the partially visualized liver, spleen, pancreas, upper most kidneys, or right adrenal gland. 1.5 cm left adr enal gland myelolipoma.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
--- OUTSIDE RECORDS SUMMARY | 2020-02-11 12:33 | XMS REPORT | Clinical Summary ---
Author Author [facility] Address Unknown Phone Unavailable Care Team Providers Care Touch Up Carver Name Role Phone Laurie Cortes MD PCP Allergies No Known Active Allergies Medications End Date Status Medication Sig Dispensed Refills Start Date Active propranolol (INDERAL) 40 TK 1 T PO BID 1 07/11 MG tablet 7 Active levothyroxine (SYNTHROID, TK 1 T PO D 0 03/ LEVOXYL) 150 mcg tablet 7 Active butalbital-acetaminophen- TK 1 T PO Q 8 0 05/07 caff (FIORICET, ESGIC) H PRN 7 50-325-40 [...] 08/07/2016 Migraine Hypothyroid Hypertension Depression Allergic rhinitis Surgical History Surgery Date Site/Laterality Comments HYSTERECTOMY THYROIDECTOMY nodules COLONOSCOPY 04/05/2011 - 04/04/2012 GALLBLADDER SURGERY Medical History Medical History Date Comments Migraine Hypothyroid Hypertension Depression Allergic rhinitis Family History Medical History Relation Name Comments Heart disease Father Hyperlipidemia Father Atrial fibrillation Mother Relation Name Status Comments Father Mother Social History Date Tobacco Use Types Packs/Day Years Used Never Smoker Smokeless Tobacco: Never Used Drinks/Week oz/Week Comments Alcohol Use No Sex Assigned at Date Recorded Not on file Last Filed Vital Signs Not on file Plan of Treatment Health Maintenance Due Date Last Done Comments CERVICAL CANCER SCREENING 07/12/1987 BREAST CANCER SCREENING 2016 COLONOSCOPY SCREENING 2016 SHINGLES VACCINES (#1) 2016 INFLUENZA VACCINE 11/04/2019 Results Not on fileafter 02/10/2019 Insurance Type Payer Benefit Subscriber ID Effective Phone Address Plan / Dates Group PPO BCBS BCBS [id number] 2016-P CHOICE resent PPO/FRANCHESKA SYKES PPO Advance Directives For more information, please contact: [phone] 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
--- NOTE | 2020-02-11 12:41 | Diagnostic Imaging Report ---
Foot complete CPT code: 48542 Indication: ^pain 4th MTP joint s/p trauma ^[id number] ^1207 Technique: A.P., oblique and lateral views of the left foot obtained. Comparison: None Findings: Calcaneus is intact with a small plantar spur. The midfoot is intact. Oblique fracture through the diaphysis of the proximal phalanx of the fourth digit without intra-articular extension. The remainder of the digits are intact. There are several rounded calcifications at the plantar aspect of the midfoot within the soft tissues. IMPRESSION: Fracture of the proximal phalanx of the fourth digit. Calcifications at the plantar aspect of the midfoot suggestive of tendinopathy. Signed by: Dr. Gaby Mcdaniel MD on 02/11/2020 12:37 PM
[2020-02-11] MEDS ORDERED: ONDANSETRON HCL 4 MG ORAL DISINTEGRATING TAB ONE (12:46)
--- NOTE | 2020-02-11 12:52 | NUR ---
DOMENICO TAPED TOE
[2020-02-11] MEDS ORDERED: TYLENOL # 31 EA PO (12:59)
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
[2020-02-11] MEDS ORDERED: ONDANSETRON HCL 4 MG ORAL DISINTEGRATING TAB PO ONE (13:15)
--- NOTE | 2020-02-11 15:12 | Emergency Department Note ---
History of Present Illnes History of Present Illness Chief Complaint: Extremity Trauma/Pain History of Present Illness This is a 54 year old female . 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[employer] Required: No Onset (how long ago): minute(s) (Just [employer]ATE) Location: left distal foot and poximal left 4th toe Quality: sharp Radiation: Reports non-radiation Severity: severe Onset quality: sudden Timing of current episode: constant Progression: unchanged Chronicity: new Context: Reports trauma/injury (Was running barefot through house and hit toe on chair, denies any other injuries); Denies recent illness Relieving factors: rest Exacerbating factors: movement Associated symptoms: Denies fever/chills, Denies nausea/vomiting Treatments prior to arrival: splint Past Medical/Family History Physician Review I have reviewed the patient's past medical and family history. Any updates have been documented here. Past Medical History Past Medical History: Hypertension, Hypothyroidism, Migraines, Depression, Hype rlipedemia Past Surgical History: Cholecysctectomy, Hysterectomy, T&A Other Surgery: THYROID, BREAST BIOPSY;PARTICAL HYSTERECTOMY Social History Any Illegal Drug Use: No Other Last Tetanus: utd Review of Systems Review of Systems Constitutional: Denies chills, Denies fever EENTM: Denies throat pain Cardiovascular: Denies chest pain Respiratory: Denies cough, Denies dyspnea Gastrointestinal: Denies diarrhea Genitourinary: Denies dysuria Musculoskeletal: Denies back pain Integumentary: Denies rash Neurological: Denies headache Endocrine: Reports other (No loss of taste, no loss of smell); Denies increased thirst Hematological/Lymphatic: Denies easy bruising Physical Exam Related Data Allergies: Coded Allergies: lemon (Verified Allergy, Severe, HIVES, THROAT CLOSURE, 11/07/18) [place] (Verified Allergy, Severe, HIVES, THROAT CLOSURE, 11/07/18) Physical Exam CONSTITUTIONAL Constitutional: Present well-developed, Present well-nourished HENT HENT: Present normocephalic, Present atraumatic, Present oropharynx clear/moist, Present nose normal HENT L/R: Present left ext ear normal, Present right ext ear normal EYES Eyes: Reports PERRL, Reports conjunctivae normal NECK Neck: Present ROM normal PULMONARY Pulmonary: Present effort normal, Present breath sounds normal CARDIOVASCULAR Cardiovascular: Present regular rhythm, Present heart sounds normal, Present capillary refill normal, Present normal rate GASTROINTESTINAL Abdominal: Present soft, Present nontender, Present bowel sounds normal GENITOURINARY SKIN Skin: Present warm, Present dry; Absent rash MUSCULOSKELETAL NEUROLOGICAL Neurological: Present alert, Present oriented x 3, Present no gross motor or sensory deficits PSYCHOLOGICAL Psychological: Present mood/affect normal, Present judgement normal Results Imaging Imaging results reviewed: Yes Impressions Images reviewed my me concurrently with radiologist shows fracture of proximal phalanx of left 4th toe Procedures Orthopedic Splinting/Casting Injury: Injury #1 Side: left Lower extremity injury locatio: toe Lower extremity immobilizer: fritz tape Other orthopedic equipment: other (post-op shoe) Additional comments N/V intact after fritz tape Assessment & Plan Medical Decision Making MDM Differential dx includes, but not limited to: fracture, contusion, sprain, strain Reassessment Reassessment time: 12:45 Reassessment Pain better after norco Assessment & Plan Final Impression: (1) Phalanx fracture, foot Depart Disposition: HOME, SELF-detention Meds Active Scripts Acetaminophen/Codeine* (TYLENOL # 3*) 1 Ea Tab, 1 TAB PO Q4HR PRN for SEVERE PAIN (7-10), #20 Prov:CHERRY PIÑA MD 02/11/20 Reported Medications Hydrocodone Bit/Acetaminophen (NORCO 7.5-325 TABLET) 1 Each Tablet, 1 EA PO Q4HR PRN for Mild Pain (1-3) or Fever>100.8, TAB 11/11/18 [Sumatriptin] No Conflict Check, 6 MG SQ PRN PRN for MIGRAINE 11/07/18 Cyanocobalamin (Vitamin B-12) (VITAMIN B-12) 1,000 Mcg Tab.subl, 1000 MCG IM QWEEKLY 11/07/18 Levothyroxine Sodium (LEVOTHYROXINE SODIUM) 112 Mcg Tablet, 112 MCG PO DAILY, #30 TAB 11/07/18 Lisinopril (LISINOPRIL) 10 Mg Tablet, 10 MG PO DAILY, #30 TAB 11/07/18 Tizanidine Hcl (TIZANIDINE HCL) 4 Mg Tablet, 4 MG PO HS, TAB 11/07/18 Butalb/Acetaminophen/Caffeine (OXPDNSPD-MZWEBVIUMRZSQ-GJGZ CP) 1 Each Capsule, 1 CAP PO Q8H PRN for MIGRAINE 11/07/18 Venlafaxine Hcl (VENLAFAXINE HCL ER) 150 Mg Tab.er.24, 150 MG PO DAILY 11/07/18 Propranolol Hcl (PROPRANOLOL HCL) 40 Mg Tablet, 40 MG PO BID, #60 TAB 11/07/18 Cholecalciferol (Vitamin D3) (VITAMIN D) 10,000 Unit Capsule, 91614 UNITS PO WEEKLY 11/07/18 CHERRY PIÑA MD Feb 11, 2020 12:09
== END 2020-02-11 13:13 | disposition home or self-care (01) ==
LOC: FSED 12:05
DX: S92.512A Displaced fracture of proximal phalanx of left lesser toe(s), initial encounter for closed fracture (principal); W22.03XA Walked into furniture, initial encounter; Y93.02 Activity, running; Y92.008 Other place in unspecified non-institutional (private) residence as the place of occurrence of the external cause; I10 Essential (primary) hypertension; E03.9 Hypothyroidism, unspecified; E78.5 Hyperlipidemia, unspecified; F32.9 Major depressive disorder, single episode, unspecified
CPT/HCPCS: 73630; 99284; Q0162

== ENCOUNTER 2020-04-29 17:57 | Emergency (ER) | payer BC ==
[~2020-04-29] VITALS: Ht 165.1 cm; Wt 89.4 kg
[~2020-04-29 17:57] MED LIST changes: +TYLENOL # 31 EA PO
[2020-04-29] MEDS ORDERED: TRAZODONE HCL100 MG PO (18:39)
[2020-04-29] MEDS ORDERED: HYDROCODONE/APAP 5MG-325MG TAB PO ONE (20:30)
[2020-04-29] MEDS ORDERED: KETOROLAC TROMETHAMINE 60 MG/2 ML VIAL IM ONE (20:30)
[2020-04-29] MEDS ORDERED: CYCLOBENZAPRINE HCL 10 MG TAB PO ONE (20:30)
[2020-04-29] MEDS ORDERED: KETOROLAC TROMETHAMINE 60 MG/2 ML VIAL ONE (20:45)
[2020-04-29] MEDS ORDERED: CYCLOBENZAPRINE HCL 10 MG TAB ONE (20:45)
[2020-04-29] MEDS ORDERED: ONDANSETRON HCL 4 MG ORAL DISINTEGRATING TAB PO ONE ×2 (20:45)
[2020-04-29] MEDS ORDERED: HYDROCODONE/APAP 5MG-325MG TAB ONE (20:46)
[2020-04-29] MEDS ORDERED: ONDANSETRON HCL 4 MG ORAL DISINTEGRATING TAB ONE (20:50)
[2020-04-29] MEDS ORDERED: MORPHINE SULFATE 5 MG/ML VIAL IM STA (21:48)
[2020-04-29] MEDS ORDERED: CYCLOBENZAPRINE5 MG PO (21:56)
[2020-04-29] MEDS ORDERED: ULTRAM50 MG PO (21:56)
[2020-04-29] MEDS ORDERED: MOTRIN800 MG PO (21:56)
[2020-04-29] MEDS ORDERED: MORPHINE SULFATE INJ 4 MG/ML INJ 1ML ONE (21:57)
[2020-04-29] MEDS ORDERED: MORPHINE SULFATE INJ 4 MG/ML INJ 1ML IM STA (22:04)
== END 2020-04-29 22:20 | disposition home or self-care (01) ==
LOC: FSED 19:00
DX: S86.011A Strain of right Achilles tendon, initial encounter (principal); S83.91XA Sprain of unspecified site of right knee, initial encounter; W01.0XXA Fall on same level from slipping, tripping and stumbling without subsequent striking against object, initial encounter; Y93.01 Activity, walking, marching and hiking; I10 Essential (primary) hypertension; E03.9 Hypothyroidism, unspecified; K21.9 Gastro-esophageal reflux disease without esophagitis; M54.9 Dorsalgia, unspecified; G89.29 Other chronic pain
CPT/HCPCS: 73560; 99283; J1885; J2270; Q0162

== ENCOUNTER 2020-10-01 19:14 | Emergency (ER) | payer BC ==
[~2020-10-01 19:14] MED LIST changes: +CYCLOBENZAPRINE5 MG PO; +MOTRIN800 MG PO; +TRAZODONE HCL100 MG PO; +ULTRAM50 MG PO
[2020-10-01] MEDS ORDERED: PREDNISONE20 MG PO (21:13)
[2020-10-01] MEDS ORDERED: AZITHROMYCIN250 MG PO (21:13)
[2020-10-01] MEDS ORDERED: VENTOLIN HFA18 GM INH (21:13)
== END 2020-10-01 20:59 | disposition left against medical advice (07) ==
LOC: ER 20:59
DX: R09.89 Other specified symptoms and signs involving the circulatory and respiratory systems (principal)

== ENCOUNTER 2020-10-01 19:43 | Emergency (ER) | payer BC ==
[~2020-10-01] VITALS: Ht 165.1 cm; Wt 89.4 kg
[2020-10-01] MEDS ORDERED: ALBUTEROL/IPRATROPIUM 3 ML NEB NEB STA ×2 (20:14→20:51)
[2020-10-01] MEDS ORDERED: PREDNISONE 20 MG TAB PO STA (20:25)
[2020-10-01] MEDS ORDERED: AZITHROMYCIN 250 MG TAB PO SCH (20:25)
[2020-10-01] MEDS ORDERED: AZITHROMYCIN 250 MG TAB ONE (20:39)
[2020-10-01] MEDS ORDERED: ALBUTEROL/IPRATROPIUM 3 ML NEB ONE ×2 (20:39→21:02)
[2020-10-01] MEDS ORDERED: PREDNISONE 20 MG TAB ONE (20:39)
[2020-10-01] MEDS ORDERED: PREDNISONE20 MG PO (21:13)
[2020-10-01] MEDS ORDERED: AZITHROMYCIN250 MG PO (21:13)
[2020-10-01] MEDS ORDERED: VENTOLIN HFA18 GM INH (21:13)
[2020-10-01] MEDS ORDERED: ALBUTEROL SULFATE HFA 8GM INHALATION AEROSOL INH ONE (21:22)
[2020-10-01] MEDS ORDERED: ALBUTEROL SULFATE HFA 8GM INHALATION AEROSOL INH SCH (22:00)
== END 2020-10-01 21:48 | disposition home or self-care (01) ==
LOC: FSED 20:10
DX: R05 Cough (principal); J06.9 Acute upper respiratory infection, unspecified; M79.10 Myalgia, unspecified site; I10 Essential (primary) hypertension; E03.9 Hypothyroidism, unspecified; K21.9 Gastro-esophageal reflux disease without esophagitis; M54.9 Dorsalgia, unspecified; G89.29 Other chronic pain
CPT/HCPCS: 71046; 83518; 87400; 99283; J7512